=== PATIENT | female | born 1930 | race Caucasian/White ===

== ENCOUNTER 2019-01-30 09:13 | Outpatient (CLI) | payer MEDICARE ==
[2019-01-30 12:35] LABS: Hemoglobin 14.6 g/dL (12.0-16.0); Mean Corpuscular HGB CONC 33.5 g/dL (32.0-36.0); Mean Corpuscular Hemoglobin 29.9 pg (27.0-31.0); Mean Corpuscular Volume 89.2 fL (78.0-98.0); Mean Platelet Volume 6.5 fL (7.4-10.4); Platelet Count 373 thou/uL (130-400); RBC Distribution Width 12.8 % (11.5-14.5); Red Blood Cell (RBC) Count 4.88 mill/uL (4.20-5.40); White Blood Cell (WBC) Count 6.2 thou/uL (4.8-10.8)
[2019-01-30 12:43] LABS: INR-International Normal Ratio 1.1; PTT 30.2 SEC (22.9-36.1); Prothrombin Time 14.1 SEC (12.0-14.7)
[2019-01-30 13:04] LABS: Anion Gap 15 mmol/L (10-20); BUN (Urea Nitrogen) 17 mg/dL (9.8-20.1); Calc. Creatinine Clearance 0 mL/min (70-130); Calcium 10.7 mg/dL (7.8-10.44); Carbon Dioxide 22 mmol/L (23-31); Chloride 96 mmol/L (98-107); Estimated GFR-MDRD 52; Glucose 95 mg/dL (83-110); Potassium 4.3 mmol/L (3.5-5.1); Sodium 129 mmol/L (136-145)
== END 2019-01-30 09:14 | disposition home or self-care (01) ==
LOC: LABBT 09:13
PROVIDERS: ATTEND Internal Medicine Cardiovascular Disease
DX: Z01.818 Encounter for other preprocedural examination (principal); I48.91 Unspecified atrial fibrillation
CPT/HCPCS: 80048; 85027; 85610; 85730; 93005; 93010

== ENCOUNTER 2019-01-31 05:57 | Day surgery (SDC) | payer MEDICARE ==
[2019-01-30 11:06] VITALS: BMI 27.4
[2019-01-31] MEDS ORDERED: Lidocaine 1% (PF) 30 ML VIAL ONE (06:40)
[2019-01-31] MEDS ORDERED: Propofol 500 MG/50 ML VIAL ONE (08:29)
--- NOTE | 2019-01-31 12:19 | RAD ---
SINGLE VIEW CHEST: Date: 01/31/19 COMPARISON: None. HISTORY: Pacemaker placement. FINDINGS: Single view of the chest shows a normal sized cardiomediastinal silhouette. There is a pacemaker with leads in the right atrium, right ventricle, and coronary sinus. There is no evidence of consolidatio n, mass, or pleural effusion. No pneumothorax is seen. IMPRESSION: Status post pacemaker placement without evidence of complication. POS: [facility]
== END 2019-01-31 14:40 | disposition home or self-care (01) ==
LOC: CCL 05:57
PROVIDERS: ATTEND Internal Medicine Cardiovascular Disease
PROC: 0JH607Z Insertion of Cardiac Resynchronization Pacemaker Pulse Generator into Chest Subcutaneous Tissue and Fascia, Open Approach (ICD-10-PCS; principal; 2019-01-31)
PROC: 02H63JZ Insertion of Pacemaker Lead into Right Atrium, Percutaneous Approach (ICD-10-PCS; 2019-01-31)
PROC: 02HK3JZ Insertion of Pacemaker Lead into Right Ventricle, Percutaneous Approach (ICD-10-PCS; 2019-01-31)
PROC: 02H43JZ Insertion of Pacemaker Lead into Coronary Vein, Percutaneous Approach (ICD-10-PCS; 2019-01-31)
DX: I48.0 Paroxysmal atrial fibrillation (principal); I44.7 Left bundle-branch block, unspecified; I49.5 Sick sinus syndrome; Z79.01 Long term (current) use of anticoagulants; Z79.02 Long term (current) use of antithrombotics/antiplatelets; Z79.899 Other long term (current) drug therapy
CPT/HCPCS: 33208; 33225; 36005; 71045; 75820; C1882; C1898; C1900; J0690; J2001; J2704; J3490

== ENCOUNTER 2019-02-26 07:44 | Emergency (ER) | payer MEDICARE ==
[2019-02-26] MEDS ORDERED: Fentanyl 100 MCG/2 ML VIAL ONE (08:36)
[2019-02-26] MEDS ORDERED: Ondansetron PF 4 MG/2 ML Vial ONE (08:36)
[2019-02-26 09:07] LABS: #Basophils 0.1 thou/uL (0.0-0.2); #Eosinphils 0.4 thou/uL (0.0-0.7); #Lymphocytes 1.4 thou/uL (1.20-3.40); #Monocytes 0.8 thou/uL (0.11-0.59); #Neutrophils 4.8 thou/uL (1.40-6.50); %Basophils 0.7 % (0.0-1.0); %Eosinophils 4.9 % (0.0-10.0); %Lymphocytes 18.5 % (21.0-51.0); %Monocytes 10.8 % (0.0-10.0); %Neutrophils 65.1 % (42.0-75.0); Hemoglobin 11.9 g/dL (12.0-16.0); Mean Corpuscular HGB CONC 34.1 g/dL (32.0-36.0); Mean Corpuscular Hemoglobin 30.6 pg (27.0-31.0); Mean Corpuscular Volume 89.7 fL (78.0-98.0); Platelet Count 328 thou/uL (130-400); RBC Distribution Width 13.1 % (11.5-14.5); White Blood Cell (WBC) Count 7.4 thou/uL (4.8-10.8)
[2019-02-26 09:35] LABS: ALT (SGPT) 13 U/L (8-55); AST (SGOT) 23 U/L (5-34); Albumin 4.4 g/dL (3.4-4.8); Alkaline Phosphatase 50 U/L (40-110); Anion Gap 16 mmol/L (10-20); BUN (Urea Nitrogen) 18 mg/dL (9.8-20.1); Bilirubin, Total 0.6 mg/dL (0.2-1.2); Calc. Creatinine Clearance 0 mL/min (70-130); Carbon Dioxide 22 mmol/L (23-31); Chloride 99 mmol/L (98-107); Estimated GFR-MDRD 35; Globulin 3.4 g/dL (2.4-3.5); Glucose 75 mg/dL (83-110); Potassium 4.9 mmol/L (3.5-5.1); Protein, Total 7.8 g/dL (6.0-8.3); Sodium 132 mmol/L (136-145)
--- NOTE | 2019-02-26 10:55 | ULT ---
ULTRASOUND WITH DOPPLER DUPLEX VENOUS LOWER EXTREMITY LEFT: Date: 02/26/19 HISTORY: 88-year-old female with left calf pain. TECHNIQUE: Color flow Doppler, spectral waveform analysis of pulsed Doppler, and rodriguez-scale imaging with roc flaca and augmentation, were used to evaluate the left common femoral, femoral, popliteal, posterior t ibial, and superficial femoral, veins; and the proximal portions of the profunda femoral and greater saphenous, veins. FINDINGS: The mid portion of the left posterior tibial vein is noncompressible. There is blood flow throughout the left posterior tibial vein. There is no deep venous thrombosis in the left popliteal, femoral, profunda femoral, common femoral, and greater saphenous veins. IMPRESSION: Positive for nonocclusive thrombosis of the mid segment of the left posterior tibial vein. BRI Valdovinos POS: [facility]
== END 2019-02-26 12:49 | disposition home or self-care (01) ==
LOC: ERS 07:44
DX: I82.442 Acute embolism and thrombosis of left tibial vein (principal); I48.91 Unspecified atrial fibrillation; I10 Essential (primary) hypertension; Z79.899 Other long term (current) drug therapy
CPT/HCPCS: 36415; 80053; 85025; 96374; 96375; J2405; J3010

== ENCOUNTER 2019-03-02 07:51 | Outpatient (CLI) | payer MEDICARE ==
--- NOTE | 2019-03-02 08:47 | ULT ---
Bilateral lower extremity venous Doppler ultrasound: 03/02/2019 COMPARISON: Left lower extremity venous Doppler ultrasound 02/26/2019 HISTORY: Posterior tibial venous thrombosis within the left lower extremity seen on recent imaging TECHNIQUE: Multiplanar grayscale sonographic imaging of the venous structures of bilateral lower extr emities obtained with color flow and spectral analysis FINDINGS: Right common femoral vein, greater saphenous vein, profunda femoral vein, femoral vein, pop liteal vein, and posterior tibial vein are patent with no evidence for DVT within the right lower extremity. Left common femoral vein, greater saphenous vein, profunda femoral vein, femoral vein, and popliteal vein are patent. No evidence for DVT within the left lower extremity. There is a noncompressible segment of the left posterior tibial vein within the mid calf consistent with superficial clot. IMPRESSION: Stable superficial clot within left posterior tibial vein. No DVT on either side.
== END 2019-03-02 07:52 | disposition home or self-care (01) ==
LOC: ULT 07:51
PROVIDERS: ATTEND Internal Medicine Critical Care Medicine
DX: R60.0 Localized edema (principal); I82.442 Acute embolism and thrombosis of left tibial vein
CPT/HCPCS: 93970